=== PATIENT | female | born 1985 | race Hispanic/Latino ===

== ENCOUNTER 2018-09-16 06:04 | Day surgery (SDC) | payer BC ==
[2018-09-16] MEDS ORDERED: Fentanyl 100 MCG/2 ML VIAL ONE (06:22)
[2018-09-16] MEDS ORDERED: Lidocaine 2% PF 5 ML VIAL ONE (06:45)
[2018-09-16] MEDS ORDERED: Bupivacaine HCl 0.5%/Epinephrine 1:200,000/PF 30 ml Vial ONE (06:45)
[2018-09-16 07:16] LABS: BHCG - Serum Negative (NEGATIVE); Pregs Control Background? CLEAR/WHITE (CLR/WHITE); Pregs Control Bar Appear? YES (CONTROL BAR)
--- NOTE | 2018-09-16 07:19 | HP ---
HISTORY OF PRESENT ILLNESS: Anjana Tapia is a 33-year-old female works at [employer], follows up with Dr. Brian Fernandez. She has a left axillary mass that has been present since she was a child. It is large, bothersome to her, causes discomfort, it is getting larger. It is currently measures 13 x 8 cm. It is pedunculated and has abundant amount of redundant skin. Plan would be to excise that as an outpatient. She had laboratories on 07/27/2018, and we will not repeat those. ALLERGIES: NONE. SOCIAL HISTORY: Tobacco none, alcohol none. MEDICATIONS: None. PAST SURGICAL AND MEDICAL HISTORY: Noncontributory. REVIEW OF SYSTEMS: Noncontributory. FAMILY HISTORY: Noncontributory. PHYSICAL EXAMINATION: VITAL SIGNS: 119 pounds, 62 inches, blood pressure 132/68, 110 heart rate, 99 degrees. HEAD EARS, EYES, NOSE AND THROAT: Unremarkable. LUNGS: Clear to auscultation. CARDIAC: Regular rate and rhythm without murmur or gallop. ABDOMEN: Soft and nontender. No mass. EXTREMITIES: Unremarkable. LYMPHATICS: Left axilla reveals a 13 x 9 cm pedunculated soft tissue mass. ASSESSMENT AND PLAN: Left axillary mass. PLAN: Excision under general anesthesia. She understands risks and benefits and consents. Job ID: [id number]
[2018-09-16] MEDS ORDERED: Promethazine HCl 25 MG/ML VIAL ONE (09:34)
[2018-09-16] MEDS ORDERED: traMADol HCl 50 MG TAB ONE (10:14)
--- NOTE | 2018-09-16 13:43 | OP ---
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 Excision of large left axillary ectopic breast soft tissue mass, elliptical incision 14 cm, layer closure, #10 YUE drain. ANESTHESIA: General, local of 0.5% Marcaine with epinephrine 30 mL mixed with 2% Xylocaine 10 mL, total volume used. DESCRIPTION OF PROCEDURE: The patient was taken to the operating room, where under general anesthesia in the right lateral decubitus position using a wong bag in proper padding, axillary roll, etc. The left axilla, medial upper arm, and chest wall prepared with ChloraPrep and draped in routine fashion. An elliptical incision was made excising the redundant skin, subcutaneous tissue, and underlying fatty tissue excising with cautery, gaining hemostasis with cautery, placed a #10 YUE drain, securing with 3-0 nylon sutures, securing the drain at the length and closed the subcutaneous tissues with continuous suture of 3-0 Monocryl, skin with subdermal 4-0 Monocryl and [place] glue applied. The patient tolerated the procedure well. Job ID: [id number]
[2018-09-16] MEDS ORDERED: PROPOFOL 200 MG/20 ML VIAL ONE (16:23)
[2018-09-16] MEDS ORDERED: Dexamethasone 20 MG/5 ML VIAL ONE (16:23)
[2018-09-16] MEDS ORDERED: Ondansetron PF 4 MG/2 ML Vial ONE (16:23)
[2018-09-16] MEDS ORDERED: Rocuronium Bromide 10 MG/ML (10ML VIAL) ONE (16:23)
[2018-09-16] MEDS ORDERED: Lidocaine 1% PF 5 ML VIAL ONE (16:23)
[2018-09-16] MEDS ORDERED: Glycopyrrolate 0.2 MG/ML 5 ML SYRINGE ONE (16:23)
--- NOTE | 2018-09-21 05:38 | PQF ---
[facility] POST DISCHARGE CLINICAL DOCUMENTATION IMPROVEMENT CLARIFICATION FORM l Todays Date: 09/19/18 l Patients Name TONY GEE l l Admit Date 09/16/18 l Disch Date 09/16/18 Optical Technician Name Princess Plascencia Email: @[email or web address] Cell: [phone] To be completed by Optical Technician: Present Clinical Indicators - Signs / Symptoms Results and Location in Medical Record [ ] Documentation of: [ ] [ ] Documentation of: [ ] [ ] Documentation of: [ ] [ ] Documentation of: [ ] [ ] Risks [ ] [ ] [ ] Treatment [ ] Excision of large left axillary ectopic breast soft tissue mass Query for size of excised soft tissue mass [ ] [ ] To be completed by Physician: ANUPAMA TA The documentation in this patients record requires clarification to ensure coding compliance and accuracy. Check the appropriate box and include in your discharge summary. [ ] [ ] [ ] [ ] Please check this box if this does not apply to this patient [ ] Unable to determine [ ] Other diagnosis: Review the following information and exercise your independent professional judgment in responding to the clarification. Based upon the clinical findings, risk factors, and treatment, please clarify if you are treating one of the above probable or suspected diagnoses. Physician Signature: Date Time MTDD
== END 2018-09-16 10:49 | disposition home or self-care (01) ==
LOC: SDC 06:04
PROVIDERS: ATTEND Specialist
PROC: 0XB Anatomical Regions, Upper Extremities, Excision (ICD-10-PCS; principal; 2018-09-16)
DX: M79.89 Other specified soft tissue disorders (principal)
CPT/HCPCS: 84703; 88307; J0670; J1100; J2001; J2405; J2550; J2704; J3010

== ENCOUNTER 2023-08-18 07:45 | Outpatient (CLI) | payer OTHER | END 2023-08-18 07:46 | disposition home or self-care (01) | LOC: ULT 07:45 | PROVIDERS: ATTEND Family Medicine | DX: R74.8 Abnormal levels of other serum enzymes (principal); K76.0 Fatty (change of) liver, not elsewhere classified; R16.0 Hepatomegaly, not elsewhere classified | CPT/HCPCS: 76705 ==